=== PATIENT | female | born 1990 | race African-American/Black ===

== ENCOUNTER 2018-04-17 18:29 | Emergency (ER) | payer OTHER ==
[~2018-04-17] VITALS: Ht 167.6 cm; Wt 71.0 kg
[2018-04-17 18:34] VITALS: BP 129/76
== END 2018-04-17 19:30 | disposition left against medical advice (07) ==
LOC: ER 18:29
DX: M79.10 Myalgia, unspecified site (principal); Z53.21 Procedure and treatment not carried out due to patient leaving prior to being seen by health care provider